=== PATIENT | male | born 1980 | race Caucasian/White ===

== ENCOUNTER 2020-04-22 17:14 | Emergency (ER) | payer OTHER ==
[2020-04-22 18:06] LABS: HEMOGLOBIN 12.5 gm/dl (14.0-17.5); RED BLOOD COUNT 4.08 M/UL (4.20-5.50); WHITE BLOOD COUNT 10.9 K/UL (4.5-11.0)
[2020-04-22 18:35] LABS: BUN/CREATININE RATIO 21 (0-10)
== END 2020-04-23 02:35 | disposition short-term general hospital (02) ==
LOC: ER1 17:14
PROVIDERS: Physician Assistant
DX: R45.851 Suicidal ideations (principal); I25.2 Old myocardial infarction; F17.210 Nicotine dependence, cigarettes, uncomplicated; Z91.030 Bee allergy status; Z20.822 Contact with and (suspected) exposure to COVID-19
CPT/HCPCS: 71045; 80053; 85025; 87635; 99285

== ENCOUNTER 2020-08-14 22:58 | Emergency (ER) | payer OTHER ==
[2020-08-14 23:43] LABS: HEMOGLOBIN 10.7 gm/dl (14.0-17.5); RED BLOOD COUNT 3.42 M/UL (4.20-5.50); WHITE BLOOD COUNT 9.3 K/UL (4.5-11.0)
[2020-08-14 23:56] LABS: BUN/CREATININE RATIO 22 (0-10)
[2020-08-16 08:37] LABS: WHITE BLOOD COUNT 9.5 K/UL (4.5-11.0)
[2020-08-16 08:41] LABS: HEMOGLOBIN 13.3 gm/dl (14.0-17.5); RED BLOOD COUNT 4.45 M/UL (4.20-5.50)
[2020-08-16 08:56] LABS: BUN/CREATININE RATIO 21 (0-10)
== END 2020-08-16 09:45 | disposition other institution (70) ==
LOC: ER1 22:58
PROVIDERS: Emergency Medicine; Internal Medicine
DX: R45.851 Suicidal ideations (principal); F31.9 Bipolar disorder, unspecified; Z20.822 Contact with and (suspected) exposure to COVID-19; G40.909 Epilepsy, unspecified, not intractable, without status epilepticus; F17.210 Nicotine dependence, cigarettes, uncomplicated
CPT/HCPCS: 0240U; 71045; 80053; 80307; 85025; 85610; 85730; 93005; 99285; Q9967

== ENCOUNTER 2020-08-24 22:15 | Emergency (ER) | payer OTHER ==
[2020-08-24 23:31] LABS: HEMOGLOBIN 12.6 gm/dl (14.0-17.5); RED BLOOD COUNT 4.02 M/UL (4.20-5.50); WHITE BLOOD COUNT 13.3 K/UL (4.5-11.0)
[2020-08-24 23:49] LABS: BUN/CREATININE RATIO 33 (0-10)
== END 2020-08-25 09:45 | disposition other institution (70) ==
LOC: ER1 22:15
PROVIDERS: Family Medicine
DX: F32.9 Major depressive disorder, single episode, unspecified (principal); F41.9 Anxiety disorder, unspecified; Z20.822 Contact with and (suspected) exposure to COVID-19; F17.200 Nicotine dependence, unspecified, uncomplicated
CPT/HCPCS: 0240U; 80053; 80185; 80307; 85025; 85610; 94664; 99285

== ENCOUNTER 2020-10-19 19:01 | Emergency (ER) | payer OTHER ==
[2020-10-19 19:56] LABS: HEMOGLOBIN 13.4 gm/dl (14.0-17.5); RED BLOOD COUNT 4.25 M/UL (4.20-5.50); WHITE BLOOD COUNT 14.7 K/UL (4.5-11.0)
[2020-10-19 20:17] LABS: BUN/CREATININE RATIO 28 (0-10)
== END 2020-10-20 01:36 | disposition short-term general hospital (02) ==
LOC: ER1 19:01
PROVIDERS: Family Medicine
DX: S30.1XXA Contusion of abdominal wall, initial encounter (principal); R45.851 Suicidal ideations; Z86.711 Personal history of pulmonary embolism; F17.210 Nicotine dependence, cigarettes, uncomplicated; X83.8XXA Intentional self-harm by other specified means, initial encounter; Z20.822 Contact with and (suspected) exposure to COVID-19
CPT/HCPCS: 71045; 80053; 80184; 82550; 82553; 83874; 84484; 85025; 85610; 93005; 99285; G0480; J2405; U0002

== ENCOUNTER 2021-02-04 17:04 | Emergency (ER) | payer OTHER ==
[2021-02-04 18:49] LABS: HEMOGLOBIN 11.9 gm/dl (14.0-17.5); RED BLOOD COUNT 3.85 M/UL (4.20-5.50); WHITE BLOOD COUNT 11.7 K/UL (4.5-11.0)
[2021-02-04 19:09] LABS: BUN/CREATININE RATIO 23 (0-10)
== END 2021-02-05 04:20 | disposition short-term general hospital (02) ==
LOC: ER1 17:04
PROVIDERS: Physician Assistant
DX: R45.851 Suicidal ideations (principal); F17.200 Nicotine dependence, unspecified, uncomplicated; G40.909 Epilepsy, unspecified, not intractable, without status epilepticus; Z20.822 Contact with and (suspected) exposure to COVID-19
CPT/HCPCS: 80053; 80307; 85025; 99285; C9113; G0480; J2920; U0002

== ENCOUNTER 2021-04-13 17:09 | Emergency (ER) | payer OTHER | END 2021-04-14 02:15 | disposition short-term general hospital (02) | LOC: ER1 17:09 | DX: F32.A Depression, unspecified (principal); R45.851 Suicidal ideations; Z20.822 Contact with and (suspected) exposure to COVID-19 | CPT/HCPCS: 99285; U0002 ==

== ENCOUNTER 2021-05-16 17:21 | Emergency (ER) | payer OTHER | END 2021-05-17 03:15 | disposition short-term general hospital (02) | LOC: ER1 17:21 | DX: F32.A Depression, unspecified (principal); R45.851 Suicidal ideations; F17.210 Nicotine dependence, cigarettes, uncomplicated; Z20.822 Contact with and (suspected) exposure to COVID-19 | CPT/HCPCS: 99284; U0002 ==

== ENCOUNTER 2021-08-20 21:03 | Emergency (ER) | payer OTHER | END 2021-08-21 09:35 | LOC: ER1 21:03 | DX: F32.A Depression, unspecified (principal); F17.210 Nicotine dependence, cigarettes, uncomplicated; Z20.822 Contact with and (suspected) exposure to COVID-19 | CPT/HCPCS: 99284; U0002 ==

== ENCOUNTER 2021-10-10 17:07 | Emergency (ER) | payer OTHER ==
[2021-10-10 18:16] LABS: HEMOGLOBIN 13.4 gm/dl (14.0-17.5); RED BLOOD COUNT 4.3 M/UL (4.20-5.50)
[2021-10-10 18:53] LABS: BUN/CREATININE RATIO 27 (0-10)
== END 2021-10-11 08:01 | disposition other institution (70) ==
LOC: ER1 17:07
PROVIDERS: Emergency Medicine
DX: R45.851 Suicidal ideations (principal); F17.210 Nicotine dependence, cigarettes, uncomplicated; G40.909 Epilepsy, unspecified, not intractable, without status epilepticus; Z79.899 Other long term (current) drug therapy; Z20.822 Contact with and (suspected) exposure to COVID-19
CPT/HCPCS: 0240U; 80048; 80307; 81001; 84484; 85025; 87086; 93005; 99285; G0480

== ENCOUNTER 2021-12-20 13:42 | Emergency (ER) | payer OTHER ==
[2021-12-20 15:45] LABS: HEMOGLOBIN 13.3 gm/dl (14.0-17.5); RED BLOOD COUNT 4.26 M/UL (4.20-5.50); WHITE BLOOD COUNT 10.7 K/UL (4.5-11.0)
[2021-12-20 16:19] LABS: BUN/CREATININE RATIO 21 (0-10)
== END 2021-12-20 18:57 | disposition short-term general hospital (02) ==
LOC: ER1 13:42
PROVIDERS: Emergency Medicine; Physician Assistant
DX: R45.851 Suicidal ideations (principal); F17.290 Nicotine dependence, other tobacco product, uncomplicated; Z20.822 Contact with and (suspected) exposure to COVID-19
CPT/HCPCS: 80053; 80307; 81001; 85025; 99285; U0002